=== PATIENT | female | born 1980 | race Caucasian/White ===

== ENCOUNTER → 2019-07-04 08:21 | Outpatient (CLI) | payer BC, SELFPAY ==
--- NOTE | ~2019-07-04 | US_ITS ---
EXAMINATION: US OB transvaginal DATE: 07/04/2019 08:53 INDICATION: Gestational dating. TECHNIQUE: Real-time transabdominal and transvaginal obstetric ultrasound. FINDINGS: No prior studies for comparison. The uterus measures 10.8 x 6.9 x 7.6 cm. There is an intrauterine gestational sac, with pole id entified. The crown rump length measures 1.69 cm, which correlates with a estimated gestational age of 8 weeks 1 day. heart tones are identified measuring 160 BPM. Right ovary measures 3.3 x 1. 5 x 3.9 cm. Left ovary measures 1.9 x 1.7 x 3.6 cm. No ovarian mass. Small amount of free fluid in th e pelvic cul-de-sac. IMPRESSION: 1. SL IUP with an EGA of 8 weeks, 1 days (EDC by current ultrasound of 02/12/2020). Reviewed, dictated and finalized at location A. IC RELATIONS CONSULTANT IMPRESSION: 1. SL IUP with an EGA of 8 weeks, 1 days (EDC by current ultrasound of 0).
== END ==
PROVIDERS: Visit Provider Nurse Practitioner
DX: Z36.87 Encounter for antenatal screening for uncertain dates (principal); Z3A.08 8 weeks gestation of pregnancy
CPT/HCPCS: 76817